=== PATIENT | male | born 1990 | race African-American/Black ===

== ENCOUNTER 2016-05-25 20:54 | Emergency (ER) | payer SELFPAY ==
[~2016-05-25 20:54] MED LIST: POLY10O EACH EYE
[2016-05-25 20:55] VITALS: BP 135/79; PULSE 87; RESP 16; TEMP 98.3; O2SAT 96
[2016-05-25] MEDS ORDERED: BACT800T5 PO (22:11)
[2016-05-25] MEDS ORDERED: CEPH-460 PO (22:11)
[2016-05-25] MEDS ORDERED: CEPHALEXIN MONOHYDRATE 500 MG CAP PO ONE (22:15)
[2016-05-25] MEDS ORDERED: SULFAMETHOXAZOLE-TRIMETHOPRIM DS 800-160 MG TAB PO ONE (22:15)
--- NOTE | 2016-05-25 22:15 | PD ---
HPI Chief Complaint: Skin Problem Time Seen by Provider: 22:11 Travel History International Travel<30 days: No Contact w/Intl Traveler<30days: No Traveled to known affect area: No History of Present Illness HPI 25-year-old black male presents to emergency department with complaints of a skin infection to his left neck after shaving. He states that he has had ingrown hairs and skin infections in the past. He is unsure whether there was an ingrown hair. He has attempted to remove it with a needle. It has become increasingly painful, tender and now has a small amount of drainage. He is up- to-date with immunizations. He denies any fever or chills. PFSH Past Medical History Medical History: Denies Significant Hx Tetanus Vaccination: < 5 Years Past Surgical History Surgical History: No Previous Surgery Social History Alcohol Use: Yes (RARE) Tobacco Use: Yes ( 2 A DAY CIGARS) Substance Use: No Allergies-Medications (Allergen,Severity, Reaction): Coded Allergies: No Known Allergies (Unverified , 05/25/16) Reported Meds & Prescriptions Reported Meds & Active Scripts Active No Active Prescriptions or Reported Medications Review of Systems Except as stated in HPI: all other systems reviewed are Neg Physical Exam Narrative GENERAL: This is a well-nourished, well-developed patient, in no apparent distress. SKIN: Patient has a 1 cm tender erythematous indurated follicular lesion to the left lower neck. I see no obvious ingrown hair. No fluctuance or pointing. Positive small amount of pus drainage., ecchymoses or lesions. Warm and dry. HEAD: Atraumatic. Normocephalic. EYES: PERRL, EOMI, no discharge or injection. No scleral icterus. EARS: Clear NOSE: Nasal turbinates appear normal. THROAT: Mucosa pink and moist. Airway patent. NECK: Trachea midline. supple, moves head freely. LUNGS: Clear to auscultation. CV: Regular in rhythm. ABDOMEN: Soft nontender. EXT: No clubbing cyanosis or edema. Data Data Last Documented VS Vital Signs Date Time Temp Pulse Resp B/P Pulse Ox O2 Delivery O2 Flow Rate FiO2 05/25/16 20:55 98.3 87 16 135/79 96 Room Air Orders Sulfamet-Trimeth Ds 800-160 Mg (Bactrim (05/25/16 22:15) Cephalexin (Keflex) (05/25/16 22:15) [facility] Medical Decision Making Medical Screen Exam Complete: Yes Emergency Medical Condition: Yes Medical Record Reviewed: Yes Differential Diagnosis MDM: High Differential diagnoses: Abscess, folliculitis, cellulitis, lymphangitis, abrasion, contact dermatitis Narrative Course Patient's given Bactrim DS and Keflex 500 mg by mouth. This is a superficial draining abscess Diagnosis Primary Impression: sUPERFICIAL DRAINING ABSCESS Patient Instructions: General Instructions Additional Instructions: Rest. Elevation. keep clean and dry. Warm compresses. Daily wound care with soap, water and Neosporin. Three Advil every 6 hours. Keflex and Bactrim DS. Follow-up with a primary care doctor in one week. Return to the ER for any problems. Med/Other Pt SpecificInfo: Prescription(s) given, Wound Care Scripts Cephalexin (Keflex)500 Mg [id number] Mg PO Q6H #28 CAP Prov:Alfredo Pérez MD 05/25/16 Sulfamethoxazole-Trimethoprim (Bactrim DS)800-160 Mg Tab1 Tab PO BID #14 TAB Prov:Alfredo Pérez MD 05/25/16 Disposition: 01 DISCHARGE HOME Condition: Stable Manuel Casiano May 25, 2016 22:15
== END 2016-05-25 22:49 | disposition home or self-care (01) ==
LOC: NEPB 20:54
DX: L02.11 Cutaneous abscess of neck (principal); Z72.0 Tobacco use
CPT/HCPCS: 99282

== ENCOUNTER 2017-02-03 17:44 | Inpatient (IN) | payer SELFPAY ==
[~2017-02-03] VITALS: Ht 185.4 cm; Wt 109.2 kg
[~2017-02-03 17:44] MED LIST changes: +BACT800T5 PO; +CEPH-460 PO; -POLY10O EACH EYE
[2017-02-03 17:45] VITALS: BP 137/89; PULSE 76; RESP 16; TEMP 98.6; O2SAT 98
--- NOTE | 2017-02-03 18:25 | PD ---
HPI Chief Complaint: Complaint Time Seen by Provider: 18:24 Travel History International Travel<30 days: No Contact w/Intl Traveler<30days: No Traveled to known affect area: No History of Present Illness HPI 26-year-old Afro-[place] male presents emergency Department with lower back pain and darkening urine over the past 2 days. Patient denies dysuria or penile discharge. Patient states he has been working hard the last couple of weeks. Patient states chills yesterday but no obvious fever, nausea, vomiting, weakness, or changes in his stool. He denies abdominal pain. Patient states she's been trying to keep hydrated. Currently his pain in his back is 8 out of 10. It is worse today than it was yesterday. Patient states he tried to stretch out but it made no improvement. Patient denies taking any supplementation for his workouts. Patient denies any recent drug use or excessive alcohol use. He denies any new sexual partners without protection. Denies any recent viral illnesses or nausea, vomiting, or fevers. He has no known drug allergies. [employer] Social History Alcohol Use: Yes (RARE) Tobacco Use: Yes ( 2 A DAY CIGARS) Substance Use: No Allergies-Medications (Allergen,Severity, Reaction): Coded Allergies: No Known Allergies (Unverified , 05/25/16) Reported Meds & Prescriptions Reported Meds & Active Scripts Active Keflex (Cephalexin) 500 Mg Cap 500 Mg PO Q6H Bactrim DS (Sulfamethoxazole-Trimethoprim) 800-160 Mg Tab 1 Tab PO BID Review of Systems Except as stated in HPI: all other systems reviewed are Neg General / Constitutional: Positive: Chills, No: Fever Eyes: No: Visual changes HENT: No: Headaches Cardiovascular: No: Chest Pain or Discomfort Respiratory: No: Shortness of Breath Gastrointestinal: No: Abdominal Pain Genitourinary: Positive: Other (dark urine), No: Urgency, Frequency, Dysuria, Discharge Musculoskeletal: Positive: Myalgias, No: Arthralgias, Limited ROM, Pain Skin: No Rash Neurologic: No: Weakness Psychiatric: No: Depression Endocrine: No: Polydipsia Hematologic/Lymphatic: No: Easy Bruising Physical Exam Narrative GENERAL: Patient appears in no acute distress. SKIN: Warm and dry. Normal color. Normal turgor. No rash. HEAD: Atraumatic. Normocephalic. EYES: Pupils equal and round. No scleral icterus. No injection or drainage. ENT: No nasal bleeding or discharge. Mucous membranes pink and moist. NECK: Trachea midline. Supple nontender. CARDIOVASCULAR: Regular rate and rhythm. RESPIRATORY: No accessory muscle use. Clear to auscultation. Breath sounds equal bilaterally. GASTROINTESTINAL: Abdomen soft, non-tender, nondistended. Hepatic and splenic margins not palpable. No CVA tenderness. MUSCULOSKELETAL: Extremities without clubbing, cyanosis, or edema. No obvious deformities. Patient is soft tissue tenderness in the lower lumbar region bilaterally. No radicular symptoms. NEUROLOGICAL: Awake and alert. No obvious cranial nerve deficits. Motor grossly within normal limits. Five out of 5 muscle strength in the arms and legs. Normal speech. PSYCHIATRIC: Appropriate mood and affect; insight and judgment normal. Data Data Last Documented VS Vital Signs Date Time Temp Pulse Resp B/P (MAP) Pulse Ox O2 Delivery O2 Flow Rate FiO2 02/03/17 19:32 70 16 115/79 (91) 98 Room Air 02/03/17 17:45 98.6 Orders Orders Urinalysis - C+S If Indicated (02/03/17 17:58) Complete Blood Count With Diff (02/03/17 17:58) Ckmb (Isoenzyme) Profile (02/03/17 18:29) Comprehensive Metabolic Panel (02/03/17 18:29) Ecg Monitoring (02/03/17 18:29) Iv Access Insert/Monitor (02/03/17 18:29) Oximetry (02/03/17 18:29) Oxygen Administration (02/03/17 18:29) Sodium Chloride 0.9% Flush (Ns Flush) (02/03/17 18:30) Sodium Chlor 0.9% 1000 Ml Inj (Ns 1000 M (02/03/17 18:30) Ct Abd/Pel W/O Iv Contrast (02/03/17 19:07) Tylenol (Acetaminophen) (02/03/17 20:00) Hepatitis Profile (02/03/17 20:00) CKMB (02/03/17 18:30) CKMB% (02/03/17 18:30) Hiv Antibody Screen (02/03/17 20:49) Sodium Chlor 0.9% 1000 Ml Inj (Ns 1000 M (02/03/17 21:30) Admit Order (Ed Use Only) (02/03/17 21:47) Labs Laboratory Tests Test 02/03/17 18:00 02/03/17 18:30 02/03/17 20:15 Urine Color LIGHT-RED Urine Turbidity CLEAR Urine pH 6.5 Urine Specific [place] 1.028 Urine Protein 100 mg/dL Urine Glucose (UA) NEG mg/dL Urine Ketones NEG mg/dL Urine Occult Blood LARGE Urine Nitrite NEG Urine Bilirubin NEG Urine Urobilinogen 2.0 MG/DL Urine Leukocyte Esterase NEG Urine RBC 1 /hpf Urine WBC 4 /hpf Microscopic Urinalysis Comment CULT NOT INDICATED White Blood Count 9.7 TH/MM3 Red Blood Count 4.91 MIL/MM3 Hemoglobin 15.2 GM/DL Hematocrit 43.9 % Mean Corpuscular Volume 89.3 FL Mean Corpuscular Hemoglobin 30.9 PG Mean Corpuscular Hemoglobin Concent 34.6 % Red Cell Distribution Width 13.1 % Platelet Count 257 TH/MM3 Mean Platelet Volume 7.5 FL Neutrophils (%) (Auto) 66.0 % Lymphocytes (%) (Auto) 22.3 % Monocytes (%) (Auto) 9.0 % Eosinophils (%) (Auto) 1.9 % Basophils (%) (Auto) 0.8 % Neutrophils # (Auto) 6.4 TH/MM3 Lymphocytes # (Auto) 2.2 TH/MM3 Monocytes # (Auto) 0.9 TH/MM3 Eosinophils # (Auto) 0.2 TH/MM3 Basophils # (Auto) 0.1 TH/MM3 CBC Comment DIFF FINAL Differential Comment Blood Urea Nitrogen 13 MG/DL Creatinine 1.31 MG/DL Random Glucose 79 MG/DL Total Protein 7.3 GM/DL Albumin 3.8 GM/DL Calcium Level 8.8 MG/DL Alkaline Phosphatase 106 U/L Aspartate Amino Transf (AST/SGOT) 1784 U/L Alanine Aminotransferase (ALT/SGPT) 591 U/L Total Bilirubin 0.4 MG/DL Sodium Level 138 MEQ/L Potassium Level 3.8 MEQ/L Chloride Level 105 MEQ/L Carbon Dioxide Level 26.8 MEQ/L Anion Gap 6 MEQ/L Estimat Glomerular Filtration Rate 81 ML/MIN Total Creatine Kinase 39884 U/L Creatine Kinase MB 53.1 NG/ML Creatine Kinase MB % 0.2 % Acetaminophen Level LESS THAN 2.0 MCG/ML MDM Medical Decision Making Medical Screen Exam Complete: Yes Emergency Medical Condition: Yes Differential Diagnosis UTI. Dehydration. Rhabdomyolysis. Renal insufficiency. Narrative Course Patient is medically stable at time of exam. Is ordered including CBC, CMP, CK-MB, urinalysis. Urinalysis shows hematuria without signs of infection. CT of the abdomen and pelvis was ordered without contrast. Patient is given 1000 mL bolus of normal saline. CBC is unremarkable except for elevated monocytes in the differential. Chemistry shows AST to be significantly elevated at 1784. Urinalysis is showing to be light red, specific gravity 1.028, protein is greater than 100, and this shows to have a large occult blood, but only 1 RBC per high-power field. No urine culture is warranted.. Hepatitis panel, HIV and acetaminophen level were added. Chemistries show creatinine of 1.31, GFR of 81, AST is 1784, ALT is 591, alkaline phosphatase phosphatase is normal. Total creatinine kinase is 28,016. Acetaminophen level is less than 2.0. Patient is discussed with Dr. Lopez feels the patient should be admitted for observation and further evaluation pending repeat blood work. Call was placed to the hospitalist and patient was discussed with Dr. Lee. Patient admitted to inpatient status. Diagnosis Primary Impression: Acute hepatitis Additional Impression: Elevated creatine kinase level Admitting Information Admitting Physician Requests: Admit Condition: Stable Ha Enrique Feb 03, 2017 18:25
[2017-02-03 18:30] LABS: BLOOD, URINE LARGE (NEG); COMMENT (UR) CULT NOT INDICATED; CULTURE IF INDICATED CULT NOT INDICATED; GLUCOSE,URINE NEG (NEG); KETONE, URINE NEG (NEG); NITRITE,URINE NEG (NEG); PH, URINE 6.5 (5.0-8.5)
[2017-02-03] MEDS ORDERED: SODIUM CHLORIDE 0.9% FLUSH 10 ML FLUSH IVF PRN (18:30)
[2017-02-03] MEDS ORDERED: SODIUM CHLOR 0.9% 1000 ML INJ 1,000 ML IV ONE ×2 (18:30→21:30)
[2017-02-03 18:31] LABS: URINE COLOR LIGHT-RED (YELLW/STRAW)
[2017-02-03 18:35] VITALS: RESP 17; O2SAT 99
[2017-02-03 19:21] LABS: GLOMERULAR FILTRATION RATE 81 ML/MIN (>89)
[2017-02-03 19:29] LABS: AUTOMATED NEUTROPHIL # 6.4 TH/MM3 (1.8-7.7); BASOPHIL # 0.1 TH/MM3 (0-0.2); BASOPHIL % 0.8 % (0.0-2.0); EOSINOPHIL # 0.2 TH/MM3 (0-0.4); EOSINOPHIL % 1.9 % (0.0-4.0); HEMATOCRIT 43.9 % (39.0-51.0); HEMO FLAGS DIFF FINAL; LYMPH % 22.3 % (9.0-44.0); LYMPHOCYTE # 2.2 TH/MM3 (1.0-4.8); MEAN CELL VOLUME 89.3 FL (80.0-100.0); MEAN CORPUSCULAR HEMOGLOBIN 30.9 PG (27.0-34.0); MEAN CORPUSCULAR HGB CONC 34.6 % (32.0-36.0); PLATELET COUNT 257 TH/MM3 (150-450); RED BLOOD COUNT 4.91 MIL/MM3 (4.50-5.90); RED CELL DISTRIBUTION WIDTH 13.1 % (11.6-17.2); WHITE BLOOD COUNT 9.7 TH/MM3 (4.0-11.0)
[2017-02-03 19:32] VITALS: BP 115/79; PULSE 70; RESP 16; O2SAT 98
[2017-02-03 19:47] LABS: ALKALINE PHOSPHATASE 106 U/L (45-117); AST (GOT) 1784 U/L (15-37); TOTAL BILIRUBIN ADULT 0.4 MG/DL (0.2-1.0)
[2017-02-03 20:34] LABS: CREATINE KINASE 28016 U/L (39-308)
[2017-02-03 20:35] LABS: ALT (GPT) 591 U/L (12-78); ANION GAP 6 MEQ/L (5-15); BICARBONATE 26.8 MEQ/L (21.0-32.0); BLOOD UREA NITROGEN 13 MG/DL (7-18); CHLORIDE 105 MEQ/L (98-107); POTASSIUM 3.8 MEQ/L (3.5-5.1); SODIUM (NA) 138 MEQ/L (136-145)
[2017-02-03 20:50] LABS: CKMB 53.1 NG/ML (0.5-3.6)
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
[2017-02-03] MEDS ORDERED: NALOXONE HCL 0.4 MG/ML AMP IV PUSH PRN (22:00)
[2017-02-03] MEDS ORDERED: SODIUM CHLORIDE 0.9% FLUSH 10 ML FLUSH IV FLUSH PRN (22:00)
[2017-02-03 23:05] VITALS: BP 136/66; PULSE 61; RESP 16; TEMP 97.3; O2SAT 100
[2017-02-04] MEDS ORDERED: traMADol HCL 50 MG TAB PO ONE (00:45)
[2017-02-04] MEDS: SODIUM CHLOR 0.9% 1000 ML INJ 1,000 ML IV SCH ×6 (01:15→21:15)
--- NOTE | 2017-02-04 01:33 | HHI.HP ---
[facility] No Primary Care Physician Admission Diagnosis Rhabdomylitis/Elevated LFT's Diagnoses: Travel History International Travel<30 Days: No Contact w/Intl Traveler <30 Da: No Traveled to Known Affected Are: No History of Present Illness over caitlin weekend working out, weight hard then back pain urine color change no nausea/ vomting/ diarrhea no fever Review of Systems Except as stated in HPI: all other systems reviewed are Neg Past Family Social History Past Medical History none Past Surgical History none Reported Medications whey protein powder Allergies: Coded Allergies: No Known Allergies (Unverified , 05/25/16) Family History father - dm mother- htn paternal grandma- dm Social History smokes cigars/ uses tobacco occasional etoh no drugs Physical Exam Vital Signs Vital Signs Date Time Temp Pulse Resp B/P (MAP) Pulse Ox O2 Delivery O2 Flow Rate FiO2 02/03/17 22:44 02/03/17 19:32 70 16 115/79 (91) 98 Room Air 02/03/17 18:35 17 99 Room Air 02/03/17 18:35 99 Room Air 02/03/17 18:30 78 17 02/03/17 17:45 98.6 76 16 137/89 (105) 98 Room Air Physical Exam GENERAL: This is a well-nourished, well-developed patient, in no apparent distress. SKIN: No rashes, ecchymoses or lesions. Cool and dry. HEAD: Atraumatic. Normocephalic. No temporal or scalp tenderness. EYES: Pupils equal round and reactive. Extraocular motions intact. No scleral icterus. No injection or drainage. ENT: Nose without bleeding, purulent drainage or septal hematoma. . Airway patent. NECK: Trachea midline. No JVD CARDIOVASCULAR: Regular rate and rhythm without murmurs, gallops, or rubs. RESPIRATORY: Clear to auscultation. Breath sounds equal bilaterally. No wheezes , rales, or rhonchi. GASTROINTESTINAL: Abdomen soft, non-tender, nondistended. No guarding. MUSCULOSKELETAL: Extremities without clubbing, cyanosis, or edema. . No calf tenderness. NEUROLOGICAL: Awake and alert. Motor and sensory grossly within normal limits. Normal speech. Laboratory Laboratory Tests Test 02/03/17 18:00 02/03/17 18:30 02/03/17 20:15 Urine Color LIGHT-RED Urine Turbidity CLEAR Urine pH 6.5 Urine Specific [place] 1.028 Urine Protein 100 Urine Glucose (UA) NEG Urine Ketones NEG Urine Occult Blood LARGE Urine Nitrite NEG Urine Bilirubin NEG Urine Urobilinogen 2.0 Urine Leukocyte Esterase NEG Urine RBC 1 Urine WBC 4 Microscopic Urinalysis Comment CULT NOT INDICATED White Blood Count 9.7 Red Blood Count 4.91 Hemoglobin 15.2 Hematocrit 43.9 Mean Corpuscular Volume 89.3 Mean Corpuscular Hemoglobin 30.9 Mean Corpuscular Hemoglobin Concent 34.6 Red Cell Distribution Width 13.1 Platelet Count 257 Mean Platelet Volume 7.5 Neutrophils (%) (Auto) 66.0 Lymphocytes (%) (Auto) 22.3 Monocytes (%) (Auto) 9.0 Eosinophils (%) (Auto) 1.9 Basophils (%) (Auto) 0.8 Neutrophils # (Auto) 6.4 Lymphocytes # (Auto) 2.2 Monocytes # (Auto) 0.9 Eosinophils # (Auto) 0.2 Basophils # (Auto) 0.1 CBC Comment DIFF FINAL Differential Comment Blood Urea Nitrogen 13 Creatinine 1.31 Random Glucose 79 Total Protein 7.3 Albumin 3.8 Calcium Level 8.8 Alkaline Phosphatase 106 Aspartate Amino Transf (AST/SGOT) 1784 Alanine Aminotransferase (ALT/SGPT) 591 Total Bilirubin 0.4 Sodium Level 138 Potassium Level 3.8 Chloride Level 105 Carbon Dioxide Level 26.8 Anion Gap 6 Estimat Glomerular Filtration Rate 81 Total Creatine Kinase 43547 Creatine Kinase MB 53.1 Creatine Kinase MB % 0.2 Acetaminophen Level LESS THAN 2.0 Result Diagram: 02/03/17 18302/03/171829 Caprini VTE Risk Assessment Caprini VTE Risk Assessment: Mod/High Risk (score >= 2) Caprini Risk Assessment Model Point Value = 1 Point Value = 2 Point Value = 3 Point Value = 5 Age 41-60 Minor surgery BMI > 25 kg/m2 Swollen legs Varicose veins or History of unexplained or recurrent spontaneous Oral contraceptives or hormone replacement Sepsis (< 1 month) Serious lung disease, including pneumonia (< 1 month) Abnormal pulmonary function Acute myocardial infarction Congestive heart failure (< 1 month) History of inflammatory bowel disease Medical patient at bed rest Age 61-74 Arthroscopic surgery Major open surgery (> 45 min) Laparoscopic surgery (> 45 min) Malignancy Confined to bed (> 72 hours) Immobilizing plaster cast Central venous access Age >= 75 History of VTE Family history of VTE Factor V Leiden Prothrombin [id number] Lupus anticoagulant Anticardiolipin antibodies Elevated serum homocysteine Heparin-induced thrombocytopenia Other congenital or acquired thrombophilia Stroke (< 1 month) Elective arthroplasty Hip, pelvis, or leg fracture Acute spinal cord injury (< 1 month) Prophylaxis Regimen Total Risk Factor Score Risk Level Prophylaxis Regimen 0-1 Low Early ambulation 2 Moderate Order ONE of the following: *Sequential Compression Device (SCD) *Heparin 5000 units SQ BID 3-4 Higher Order ONE of the following medications: *Heparin 5000 units SQ TID *Enoxaparin/Lovenox 40 mg SQ daily (WT < 150 kg, CrCl > 30 mL/min) *Enoxaparin/Lovenox 30 mg SQ daily (WT < 150 kg, CrCl > 10-29 mL/min) *Enoxaparin/Lovenox 30 mg SQ BID (WT < 150 kg, CrCl > 30 mL/min) AND/OR *Sequential Compression Device (SCD) 5 or more Highest Order ONE of the following medications: *Heparin 5000 units SQ TID (Preferred with Epidurals) *Enoxaparin/Lovenox 40 mg SQ daily (WT < 150 kg, CrCl > 30 mL/min) *Enoxaparin/Lovenox 30 mg SQ daily (WT < 150 kg, CrCl > 10-29 mL/min) *Enoxaparin/Lovenox 30 mg SQ BID (WT < 150 kg, CrCl > 30 mL/min) AND *Sequential Compression Device (SCD) Assessment and Plan Assessment and Plan Impression: Rhabdomyolysis Acute renal failure from rhabdo elevated LFTs from rhabdo Plan: aggressive iv fluids will follow renal function if no improvement, will start on bicarb drip follow lfts hepatitis profile sent in er - will follow dvt prophylaxis with ambulation Discussed Condition With patient, nursing staff Physician Certification 2 Midnight Certification Type: Admission for Inpatient Services Order for Inpatient Services The services are ordered in accordance with Medicare regulations or non- Medicare payer requirements, as applicable. In the case of services not specified as inpatient-only, they are appropriately provided as inpatient services in accordance with the 2-midnight benchmark. Estimated LOS (days): 2 days is the estimated time the patient will need to remain in the hospital, assuming treatment plan goals are met and no additional complications. Post-Hospital Plan: Home Jt Lee MD Feb 04, 2017 01:33
[2017-02-04 04:00] VITALS: BP 121/62; PULSE 60; RESP 16; TEMP 97.4; O2SAT 98
[2017-02-04 07:30] VITALS: BP 140/70; PULSE 63; RESP 18; TEMP 98.2; O2SAT 96
[2017-02-04 08:45] LABS: BASOPHIL # 0.1 TH/MM3 (0-0.2); BASOPHIL % 0.9 % (0.0-2.0); EOSINOPHIL # 0.4 TH/MM3 (0-0.4); EOSINOPHIL % 5.5 % (0.0-4.0); HEMATOCRIT 40.6 % (39.0-51.0); HEMO FLAGS DIFF FINAL; LYMPH % 38.2 % (9.0-44.0); LYMPHOCYTE # 2.6 TH/MM3 (1.0-4.8); MEAN CELL VOLUME 90.9 FL (80.0-100.0); MEAN CORPUSCULAR HEMOGLOBIN 30.5 PG (27.0-34.0); MEAN CORPUSCULAR HGB CONC 33.5 % (32.0-36.0); MONO % 10.9 % (0.0-8.0); NEUT % 44.5 % (16.0-70.0); PLATELET COUNT 219 TH/MM3 (150-450); RED BLOOD COUNT 4.47 MIL/MM3 (4.50-5.90); RED CELL DISTRIBUTION WIDTH 13.4 % (11.6-17.2); WHITE BLOOD COUNT 6.7 TH/MM3 (4.0-11.0)
[2017-02-04 09:03] LABS: ALT (GPT) 482 U/L (12-78); ANION GAP 5 MEQ/L (5-15); BICARBONATE 28.6 MEQ/L (21.0-32.0); BLOOD UREA NITROGEN 10 MG/DL (7-18); CHLORIDE 106 MEQ/L (98-107); POTASSIUM 3.9 MEQ/L (3.5-5.1); SODIUM (NA) 140 MEQ/L (136-145)
[2017-02-04 09:07] LABS: ALKALINE PHOSPHATASE 96 U/L (45-117); GLOMERULAR FILTRATION RATE 91 ML/MIN (>89); TOTAL BILIRUBIN ADULT 0.3 MG/DL (0.2-1.0)
--- NOTE | 2017-02-04 09:28 | HHI.PR ---
Subjective Remarks Follow-up for rhabdomyolysis, acute kidney injury. Patient sustained muscle injury during intense exercise. Currently he denies any chest pain, shortness of breath, fever or chills. His urine is getting clearer. He reports bilateral flank pain. Objective Vitals Vital Signs Date Time Temp Pulse Resp B/P (MAP) Pulse Ox O2 Delivery O2 Flow Rate FiO2 02/04/17 07:30 98.2 63 18 140/70 (93) 96 02/04/17 04:00 97.4 60 16 121/62 (81) 98 02/03/17 23:05 97.3 61 16 136/66 (89) 100 02/03/17 22:44 02/03/17 20:00 Room Air 02/03/17 19:32 70 16 115/79 (91) 98 Room Air 02/03/17 18:35 17 99 Room Air 02/03/17 18:35 99 Room Air 02/03/17 18:30 78 17 02/03/17 17:45 98.6 76 16 137/89 (105) 98 Room Air I/O 02/03/17 02/03/17 02/03/17 02/04/17 02/04/17 02/04/17 07:00 15:00 23:00 07:00 15:00 23:00 Intake Total 1000 ml 1326 ml 240 ml Balance 1000 ml 1326 ml 240 ml Intake Oral 240 ml IV Total 1000 ml 1326 ml Result Diagram: 02/04/17 0638 02/04/17 0638 Imaging Last Impressions Abdomen/Pelvis CT 02/03/17 190 Signed Impressions: Service Date/Time: Friday, February 03, 2017 20:04 - CONCLUSION: No acute disease. Gregory Craft MD Objective Remarks GENERAL: Alert, oriented 3, NAD. SKIN: Warm and dry. HEAD: Normocephalic. EYES: No scleral icterus. No injection or drainage. NECK: Supple, trachea midline. No JVD or lymphadenopathy. CARDIOVASCULAR: Regular rate and rhythm without murmurs, gallops, or rubs. RESPIRATORY: Breath sounds equal bilaterally. No accessory muscle use. GASTROINTESTINAL: Abdomen soft, non-tender, nondistended. MUSCULOSKELETAL: No cyanosis, or edema. BACK: Nontender without obvious deformity. Mild CVA tenderness bilaterally. Procedures None A/P Problem List: (1) Rhabdomyolysis ICD Code: M62.82 - Rhabdomyolysis (2) Acute renal failure due to rhabdomyolysis ICD Code: N17.9 - Acute kidney failure, unspecified; D21.9 - Benign neoplasm of connective and other soft tissue, unspecified Assessment and Plan Mr. Degroot is a pleasant 26-year-old male who was admitted to the hospital due to acute kidney injury due to rhabdomyolysis. Patient was doing intense exercise when he sustained muscle injury. Due to dark urine he came to the hospital. - Rhabdomyolysis - Total creatinine kinase 28,000 on admission, repeat total CK 44,000 today. - We expect total CK will plateau and start to go down in a day or 2. - AST decreases from 1784 --> 1155, ALT 591 --> 482 - Increase fluid from 1 25 cc per hour to 250 cc per hour. - We'll use Ultram and Flexeril for symptomatic treatments. - Acute kidney injury - Creatinine 1.31 on admission. Today 1.19. - Electrolytes unremarkable Full code. Ambulation. Mimi Loredo DO Feb 04, 2017 9:28 am
[2017-02-04] MEDS ORDERED: ACETAMINOPHEN 500 MG CPLT PO PRN (09:30)
[2017-02-04 09:36] LABS: AST (GOT) 1155 U/L (15-37)
[2017-02-04 09:51] LABS: CREATINE KINASE 44407 U/L (39-308)
[2017-02-04 10:03] LABS: CKMB 32.6 NG/ML (0.5-3.6)
[2017-02-04] MEDS: CYCLOBENZAPRINE HCL 10 MG TAB PO PRN ×2 (10:31→17:59)
[2017-02-04] MEDS: SODIUM CHLORIDE 0.9% FLUSH 10 ML FLUSH IV FLUSH SCH ×2 (10:32→21:00)
[2017-02-04 11:00] VITALS: BP 141/65; PULSE 61; RESP 16; TEMP 97.5; O2SAT 96
[2017-02-04] MEDS: traMADol HCL 50 MG TAB PO PRN ×2 (13:08→21:17)
[2017-02-04 16:00] VITALS: BP 119/75; PULSE 63; RESP 20; TEMP 96.8; O2SAT 97
[2017-02-04 20:00] VITALS: BP 126/59; PULSE 57; RESP 20; TEMP 98; O2SAT 98
[2017-02-05] VITALS: BP 122/64; PULSE 56; RESP 20; TEMP 97.9; O2SAT 98
[2017-02-05] MEDS: SODIUM CHLOR 0.9% 1000 ML INJ 1,000 ML IV SCH ×7 (00:03→22:10)
[2017-02-05 04:00] VITALS: BP 113/60; PULSE 57; RESP 18; TEMP 97.2; O2SAT 98
[2017-02-05] MEDS: CYCLOBENZAPRINE HCL 10 MG TAB PO PRN ×3 (05:20→22:10)
[2017-02-05 07:28] LABS: ALT (GPT) 462 U/L (12-78); ANION GAP 5 MEQ/L (5-15); AST (GOT) 878 U/L (15-37); BICARBONATE 27.4 MEQ/L (21.0-32.0); BLOOD UREA NITROGEN 7 MG/DL (7-18); CHLORIDE 107 MEQ/L (98-107); GLOMERULAR FILTRATION RATE 114 ML/MIN (>89); POTASSIUM 4.3 MEQ/L (3.5-5.1); SODIUM (NA) 139 MEQ/L (136-145)
[2017-02-05 07:54] LABS: ALKALINE PHOSPHATASE 88 U/L (45-117); TOTAL BILIRUBIN ADULT 0.3 MG/DL (0.2-1.0)
[2017-02-05 08:00] VITALS: BP 141/69; PULSE 60; RESP 18; TEMP 97.6; O2SAT 99
[2017-02-05 08:19] LABS: CREATINE KINASE 29984 U/L (39-308)
[2017-02-05 08:36] LABS: CKMB 17.1 NG/ML (0.5-3.6)
[2017-02-05] MEDS: SODIUM CHLORIDE 0.9% FLUSH 10 ML FLUSH IV FLUSH SCH ×2 (09:00→21:00)
[2017-02-05] MEDS ORDERED: INFLUENZA VIRUS VACCINE (QUADRIVALENT) 0.5 ML SYR IM ONE (10:00)
--- NOTE | 2017-02-05 10:26 | HHI.PR ---
Subjective Remarks Follow-up for rhabdomyolysis, acute kidney injury. Patient is doing well. No acute concerns. Objective Vitals Vital Signs Date Time Temp Pulse Resp B/P (MAP) Pulse Ox O2 Delivery O2 Flow Rate FiO2 02/05/17 08:00 97.6 60 18 141/69 (93) 99 02/05/17 04:00 97.2 57 18 113/60 (77) 98 02/05/17 00:00 97.9 56 20 122/64 (83) 98 02/04/17 21:00 Room Air 02/04/17 20:00 98.0 57 20 126/59 (81) 98 02/04/17 16:00 96.8 63 20 119/75 (90) 97 02/04/17 11:00 97.5 61 16 141/65 (90) 96 I/O 02/04/17 02/04/17 02/04/17 02/05/17 02/05/17 02/05/17 07:00 15:00 23:00 07:00 15:00 23:00 Intake Total 1326 ml 1580 ml 3600 ml 1240 ml Output Total 1200 ml 1075 ml Balance 1326 ml 1580 ml 2400 ml 165 ml Intake Oral 240 ml 600 ml 240 ml IV Total 1326 ml 1340 ml 3000 ml 1000 ml Output Urine Total 1200 ml 1075 ml # Voids 5 # Bowel Movements 0 Result Diagram: 02/04/17 0638 02/05/17 0600 Objective Remarks GENERAL: Alert, oriented 3, NAD. SKIN: Warm and dry. HEAD: Normocephalic. EYES: No scleral icterus. No injection or drainage. NECK: Supple, trachea midline. No JVD or lymphadenopathy. CARDIOVASCULAR: Regular rate and rhythm without murmurs, gallops, or rubs. RESPIRATORY: Breath sounds equal bilaterally. No accessory muscle use. GASTROINTESTINAL: Abdomen soft, non-tender, nondistended. MUSCULOSKELETAL: No cyanosis, or edema. BACK: Nontender without obvious deformity. Mild CVA tenderness bilaterally. Procedures None A/P Problem List: (1) Rhabdomyolysis ICD Code: M62.82 - Rhabdomyolysis (2) Acute renal failure due to rhabdomyolysis ICD Code: N17.9 - Acute kidney failure, unspecified; D21.9 - Benign neoplasm of connective and other soft tissue, unspecified Assessment and Plan Mr. Degroot is a pleasant 26-year-old male who was admitted to the hospital due to acute kidney injury due to rhabdomyolysis. Patient was doing intense exercise when he sustained muscle injury. Due to dark urine he came to the hospital. - Rhabdomyolysis - Total creatinine kinase 28K --> 44K --> 30K. - AST, ALT continues to trend down. - Continue IV fluid 250 cc per hour. - We'll use Ultram and Flexeril for symptomatic treatments. - Acute kidney injury - Creatinine 1.31 on admission. Today 0.98. - Electrolytes unremarkable Full code. Ambulation. Mimi Loredo DO Feb 05, 2017 10:26
[2017-02-05 12:00] VITALS: BP 134/72; PULSE 78; RESP 18; TEMP 98.5; O2SAT 97
[2017-02-05 16:00] VITALS: BP 127/77; PULSE 68; RESP 18; TEMP 98.6; O2SAT 98
[2017-02-05] MEDS: traMADol HCL 50 MG TAB PO PRN (18:35)
[2017-02-05 20:00] VITALS: BP 131/70; PULSE 57; RESP 16; TEMP 98.3; O2SAT 97
[2017-02-06] VITALS: BP_SYST 124; BP_SYST 129; BP_DIAS 68; BP_DIAS 73; PULSE 58; RESP 16; TEMP 98.1; O2SAT 94; O2SAT 99
[2017-02-06] MEDS: SODIUM CHLOR 0.9% 1000 ML INJ 1,000 ML IV SCH ×6 (02:15→22:02)
[2017-02-06] MEDS: traMADol HCL 50 MG TAB PO PRN ×3 (02:18→18:08)
[2017-02-06 04:00] VITALS: BP 121/66; PULSE 60; RESP 16; TEMP 97.9; O2SAT 97
[2017-02-06] MEDS: CYCLOBENZAPRINE HCL 10 MG TAB PO PRN ×3 (06:19→23:34)
[2017-02-06 08:00] VITALS: BP 132/84; PULSE 62; RESP 18; TEMP 98; O2SAT 98
[2017-02-06 08:19] LABS: INDIRECT BILIRUBIN 0.2 MG/DL (0.0-0.8); TOTAL BILIRUBIN ADULT 0.3 MG/DL (0.2-1.0)
[2017-02-06] MEDS: SODIUM CHLORIDE 0.9% FLUSH 10 ML FLUSH IV FLUSH SCH ×2 (08:26→21:00)
[2017-02-06 10:17] LABS: CKMB 6.1 NG/ML (0.5-3.6)
--- NOTE | 2017-02-06 11:07 | HHI.PR ---
Subjective Remarks Follow-up for rhabdomyolysis, acute kidney injury. Patient is currently doing well. No acute concerns. Objective Vitals Vital Signs Date Time Temp Pulse Resp B/P (MAP) Pulse Ox O2 Delivery O2 Flow Rate FiO2 02/06/17 08:00 98.0 62 18 132/84 (100) 98 02/06/17 04:00 97.9 60 16 121/66 (84) 97 02/06/17 00:00 98.1 58 16 124/73 (90) 99 02/05/17 22:00 Room Air 02/05/17 20:00 98.3 57 16 131/70 (90) 97 02/05/17 16:00 98.6 68 18 127/77 (94) 98 02/05/17 12:00 98.5 78 18 134/72 (92) 97 I/O 02/05/17 02/05/17 02/05/17 02/06/17 02/06/17 02/06/17 06:59 14:59 22:59 06:59 14:59 22:59 Intake Total 1240 ml 1720 ml 999 ml 1000 ml Output Total 1075 ml 1450 ml 1150 ml Balance 165 ml 270 ml -151 ml 1000 ml Intake Oral 240 ml 720 ml IV Total 1000 ml 1000 ml 999 ml 1000 ml Output Urine Total 1075 ml 1450 ml 1150 ml # Voids 5 # Bowel Movements 0 0 Result Diagram: 02/04/17 0638 02/05/17 0600 Imaging Last Impressions Abdomen/Pelvis CT 02/03/17 1907 Signed Impressions: Service Date/Time: Friday, February 03, 2017 20:04 - CONCLUSION: No acute disease. Gregory Craft MD Objective Remarks GENERAL: Alert, oriented 3, NAD. SKIN: Warm and dry. HEAD: Normocephalic. EYES: No scleral icterus. No injection or drainage. NECK: Supple, trachea midline. No JVD or lymphadenopathy. CARDIOVASCULAR: Regular rate and rhythm without murmurs, gallops, or rubs. RESPIRATORY: Breath sounds equal bilaterally. No accessory muscle use. GASTROINTESTINAL: Abdomen soft, non-tender, nondistended. MUSCULOSKELETAL: No cyanosis, or edema. BACK: Nontender without obvious deformity. Mild CVA tenderness bilaterally. Procedures None A/P Problem List: (1) Rhabdomyolysis ICD Code: M62.82 - Rhabdomyolysis (2) Acute renal failure due to rhabdomyolysis ICD Code: N17.9 - Acute kidney failure, unspecified; D21.9 - Benign neoplasm of connective and other soft tissue, unspecified Assessment and Plan Mr. Degroot is a pleasant 26-year-old male who was admitted to the hospital due to acute kidney injury due to rhabdomyolysis. Patient was doing intense exercise when he sustained muscle injury. Due to dark urine he came to the hospital. - Rhabdomyolysis - Total creatinine kinase 28K --> 44K --> 30 --> 15 K. - AST, ALT continues to trend down. - Continue IV fluid 250 cc per hour. - We'll use Ultram and Flexeril for symptomatic treatments. - We anticipate much improvement of rhabdomyolysis within next 24-48 hours. - Acute kidney injury - Creatinine 1.31 on admission. Today 0.98. - Electrolytes unremarkable Full code. Ambulation. Likely discharge 02/07 on 02/08/2017. Mimi Loredo DO Feb 06, 2017 11:07 am
[2017-02-06 12:00] VITALS: BP 145/82; PULSE 59; RESP 18; TEMP 98.7; O2SAT 98
[2017-02-06 16:00] VITALS: BP 154/83; PULSE 61; RESP 18; TEMP 98.6; O2SAT 99
[2017-02-06 20:00] VITALS: BP 149/65; PULSE 59; RESP 16; TEMP 98; O2SAT 97
[2017-02-07] VITALS: BP 143/70; PULSE 56; RESP 16; TEMP 97; O2SAT 98
[2017-02-07] MEDS: SODIUM CHLOR 0.9% 1000 ML INJ 1,000 ML IV SCH ×6 (02:00→21:43)
[2017-02-07] MEDS: traMADol HCL 50 MG TAB PO PRN ×3 (02:00→18:05)
[2017-02-07 04:00] VITALS: BP 129/71; PULSE 55; RESP 20; TEMP 97.7; O2SAT 96
[2017-02-07] MEDS: CYCLOBENZAPRINE HCL 10 MG TAB PO PRN ×3 (07:17→23:44)
[2017-02-07 08:00] VITALS: BP 142/59; PULSE 59; RESP 18; TEMP 98; O2SAT 96
[2017-02-07] MEDS: SODIUM CHLORIDE 0.9% FLUSH 10 ML FLUSH IV FLUSH SCH ×2 (08:04→21:00)
--- NOTE | 2017-02-07 11:12 | HHI.PR ---
Subjective Remarks Follow-up for rhabdomyolysis, acute kidney injury. Patient is currently doing well. No acute concerns. Objective Vitals Vital Signs Date Time Temp Pulse Resp B/P (MAP) Pulse Ox O2 Delivery O2 Flow Rate FiO2 02/07/17 08:30 Room Air 02/07/17 08:00 98.0 59 18 142/59 (86) 96 02/07/17 04:00 Room Air 02/07/17 04:00 97.7 55 20 129/71 (90) 96 02/07/17 00:00 Room Air 02/07/17 00:00 97.0 56 16 143/70 (94) 98 02/06/17 20:00 Room Air 02/06/17 20:00 98.0 59 16 149/65 (93) 97 02/06/17 16:00 Room Air 02/06/17 16:00 98.6 61 18 154/83 (106) 99 02/06/17 12:00 98.7 59 18 145/82 (103) 98 02/06/17 12:00 Room Air I/O 02/06/17 02/06/17 02/06/17 02/07/17 02/07/17 02/07/17 07:00 15:00 23:00 07:00 15:00 23:00 Intake Total 999 ml 2960 ml 1959 ml 1972 ml 1000 ml Output Total 1150 ml 2250 ml 550 ml 825 ml Balance -151 ml 710 ml 1409 ml 1147 ml 1000 ml Intake Oral 960 ml IV Total 999 ml 2000 ml 1959 ml 1972 ml 1000 ml Output Urine Total 1150 ml 2250 ml 550 ml 825 ml # Bowel Movements 1 Result Diagram: 02/04/17 0638 02/05/17 06 Imaging Last Impressions Abdomen/Pelvis CT 02/03/171906 Signed Impressions: Service Date/Time: Friday, February 03, 2017 20:04 - CONCLUSION: No acute disease. Gregory Craft MD Objective Remarks GENERAL: Alert, oriented 3, NAD. SKIN: Warm and dry. HEAD: Normocephalic. EYES: No scleral icterus. No injection or drainage. NECK: Supple, trachea midline. No JVD or lymphadenopathy. CARDIOVASCULAR: Regular rate and rhythm without murmurs, gallops, or rubs. RESPIRATORY: Breath sounds equal bilaterally. No accessory muscle use. GASTROINTESTINAL: Abdomen soft, non-tender, nondistended. MUSCULOSKELETAL: No cyanosis, or edema. BACK: Nontender without obvious deformity. Mild CVA tenderness bilaterally. Procedures None A/P Problem List: (1) Rhabdomyolysis ICD Code: M62.82 - Rhabdomyolysis (2) Acute renal failure due to rhabdomyolysis ICD Code: N17.9 - Acute kidney failure, unspecified; D21.9 - Benign neoplasm of connective and other soft tissue, unspecified Assessment and Plan Mr. Degroot is a pleasant 26-year-old male who was admitted to the hospital due to acute kidney injury due to rhabdomyolysis. Patient was doing intense exercise when he sustained muscle injury. Due to dark urine he came to the hospital. - Rhabdomyolysis - Total creatinine kinase 28K --> 44K --> 30 --> 15 K. we'll check CMP and total creatinine kinase this afternoon. - AST, ALT continues to trend down. - Continue IV fluid 250 cc per hour. - We'll use Ultram and Flexeril for symptomatic treatments. - If total CK is below 5000, we will stop IV fluid and discharge patient home. - Acute kidney injury - Creatinine 1.31 on admission, improved to 0.98. - Electrolytes unremarkable Full code. Ambulation. Probable discharge today or tomorrow. Mimi Loredo DO Feb 07, 2017 11:12 am
[2017-02-07 12:00] VITALS: BP 132/68; PULSE 62; RESP 18; TEMP 98.1; O2SAT 95
[2017-02-07 13:41] LABS: ANION GAP 3 MEQ/L (5-15); AST (GOT) 358 U/L (15-37); BICARBONATE 32.7 MEQ/L (21.0-32.0); BLOOD UREA NITROGEN 8 MG/DL (7-18); CHLORIDE 105 MEQ/L (98-107); GLOMERULAR FILTRATION RATE 93 ML/MIN (>89); POTASSIUM 4.5 MEQ/L (3.5-5.1); SODIUM (NA) 141 MEQ/L (136-145)
[2017-02-07 13:55] LABS: ALKALINE PHOSPHATASE 98 U/L (45-117); ALT (GPT) 362 U/L (12-78); CREATINE KINASE 6402 U/L (39-308); TOTAL BILIRUBIN ADULT 0.2 MG/DL (0.2-1.0)
[2017-02-07 14:13] LABS: CKMB 2.5 NG/ML (0.5-3.6)
[2017-02-07 16:08] VITALS: BP 133/66; PULSE 65; RESP 18; TEMP 98.2; O2SAT 97
[2017-02-07 20:00] VITALS: BP 132/66; PULSE 63; RESP 18; TEMP 98; O2SAT 98
[2017-02-08] VITALS: BP 135/60; PULSE 54; RESP 18; TEMP 98.1; O2SAT 99
[2017-02-08] MEDS: SODIUM CHLOR 0.9% 1000 ML INJ 1,000 ML IV SCH ×2 (01:46→06:10)
[2017-02-08] MEDS: traMADol HCL 50 MG TAB PO PRN (01:49)
[2017-02-08 04:00] VITALS: BP 136/75; PULSE 58; RESP 18; TEMP 98.1; O2SAT 98
[2017-02-08 08:00] VITALS: BP 145/67; PULSE 61; RESP 18; TEMP 98.2; O2SAT 97
[2017-02-08] MEDS ORDERED: CYCL1TAB29 PO ×2 (08:33→08:34)
[2017-02-08] MEDS ORDERED: ULTR50TA5 PO ×2 (08:33→08:34)
[2017-02-08] MEDS: SODIUM CHLORIDE 0.9% FLUSH 10 ML FLUSH IV FLUSH SCH (09:00)
[2017-02-08 09:08] LABS: ANION GAP 3 MEQ/L (5-15); BICARBONATE 31.8 MEQ/L (21.0-32.0); BLOOD UREA NITROGEN 8 MG/DL (7-18); CHLORIDE 104 MEQ/L (98-107); POTASSIUM 4.3 MEQ/L (3.5-5.1); SODIUM (NA) 139 MEQ/L (136-145)
[2017-02-08 09:11] LABS: ALT (GPT) 292 U/L (12-78); AST (GOT) 210 U/L (15-37); GLOMERULAR FILTRATION RATE 91 ML/MIN (>89)
[2017-02-08 09:14] LABS: ALKALINE PHOSPHATASE 90 U/L (45-117); TOTAL BILIRUBIN ADULT 0.2 MG/DL (0.2-1.0)
[2017-02-08 09:30] LABS: CREATINE KINASE 2851 U/L (39-308)
--- NOTE | 2017-02-08 17:28 | HHI.DS ---
Discharge Summary Admission Date Feb 03, 2017 at 21:48 Discharge Date: Feb 08, 2017 Admitting Diagnosis Rhabdomylitis/Elevated LFT's (1) Rhabdomyolysis ICD Code: M62.82 - Rhabdomyolysis (2) Acute renal failure due to rhabdomyolysis ICD Code: N17.9 - Acute kidney failure, unspecified; D21.9 - Benign neoplasm of connective and other soft tissue, unspecified Diagnosis: Principal Procedures None Brief History - From Admission over caitlin weekend working out, weight hard then back pain urine color change no nausea/ vomting/ diarrhea no fever CBC/BMP: 02/04/17 0638 02/08/17 0744 Significant Findings Laboratory Tests Test 02/06/17 06:41 02/07/17 13:02 02/08/17 07:44 Aspartate Amino Transf (AST/SGOT) 629 U/L (15-37) 358 U/L (15-37) 210 U/L (15-37) Alanine Aminotransferase (ALT/SGPT) 431 U/L (12-78) 362 U/L (12-78) 292 U/L (12-78) Total Creatine Kinase 65996 U/L (39-308) 6402 U/L (39-308) 2851 U/L (39-308) Creatine Kinase MB 6.1 NG/ML (0.5-3.6) Total Protein 6.0 GM/DL (6.4-8.2) 6.0 GM/DL (6.4-8.2) Albumin 2.9 GM/DL (3.4-5.0) 3.1 GM/DL (3.4-5.0) 2.9 GM/DL (3.4-5.0) Carbon Dioxide Level 32.7 MEQ/L (21.0-32.0) Anion Gap 3 MEQ/L (5-15) 3 MEQ/L (5-15) Calcium Level 8.2 MG/DL (8.5-10.1) Imaging Last Impressions Abdomen/Pelvis CT 02/03/17 9533 Signed Impressions: Service Date/Time: Friday, February 03, 2017 20:04 - CONCLUSION: No acute disease. Gregory Craft MD PE at Discharge GENERAL: Alert, oriented 3, NAD. SKIN: Warm and dry. HEAD: Normocephalic. EYES: No scleral icterus. No injection or drainage. NECK: Supple, trachea midline. No JVD or lymphadenopathy. CARDIOVASCULAR: Regular rate and rhythm without murmurs, gallops, or rubs. RESPIRATORY: Breath sounds equal bilaterally. No accessory muscle use. GASTROINTESTINAL: Abdomen soft, non-tender, nondistended. MUSCULOSKELETAL: No cyanosis, or edema. BACK: Nontender without obvious deformity. Mild CVA tenderness bilaterally. Pt update on day of discharge Patient is doing well. No acute concerns. Ambulating well. Hospital Course Mr. Degroot is a pleasant 26-year-old male who was admitted to the hospital due to acute kidney injury due to rhabdomyolysis. Patient was doing intense exercise when he sustained muscle injury. Due to dark urine he came to the hospital. - Rhabdomyolysis - Total creatinine kinase 28K --> 44K --> 30 --> 15K --> 6K --> 2851 on 2016. - AST, ALT continues to trend down. - Received IV fluid 250 cc per hour. - We'll use Ultram and Flexeril for symptomatic treatments. - Acute kidney injury - Creatinine 1.31 on admission, improved to 0.98. - Electrolytes unremarkable - Creatinine hovered around 1.17. Patient is advised to get BMP, Total CK checked in one week. - Patient is also advised to keep himself well hydrated. Pt Condition on Discharge: Good Discharge Disposition: Discharge Home Discharge Time: <= 30 minutes Discharge Instructions DIET: Follow Instructions for: As Tolerated, No Restrictions Activities you can perform: Regular-No Restrictions Follow up Referrals: PCP Follow-up - 1 Week New Orders: BASIC METABOLIC PROF - 1 Week CREATININE KINASE - 1 Week New Medications: Cyclobenzaprine (Flexeril) 10 Mg Tab 10 MG PO Q8H PRN for MUSCLE SPASM, #21 TAB Tramadol (Ultram) 50 Mg Tab 50 MG PO Q8H PRN for PAIN SCALE 5 TO 10, #15 TAB Discontinued Medications: Cephalexin (Keflex) 500 Mg Cap 500 MG PO Q6H for Infection, #28 CAP Sulfamethoxazole-Trimethoprim (Bactrim DS) 800-160 Mg Tab 1 TAB PO BID for Infection, #14 TAB Mimi Loredo DO Feb 08, 2017 17:28
== END 2017-02-08 11:00 | disposition home or self-care (01) | DRG 683 ==
LOC: NEPD 17:44 → NEDA 21:48 → N04A 22:50 → N04B 02-04 14:06
PROVIDERS: ADMIT Hospitalist; ATTEND Hospitalist
DX: N17.9 Acute kidney failure, unspecified (principal); M62.82 Rhabdomyolysis; F17.290 Nicotine dependence, other tobacco product, uncomplicated; Z83.3 Family history of diabetes mellitus; D21.9 Benign neoplasm of connective and other soft tissue, unspecified
CPT/HCPCS: 74176; 80053; 80074; 80076; 80307; 81001; 82550; 82552; 85025; 86703; 96360; J7030